=== PATIENT | female | born 1990 | race Caucasian/White ===

== ENCOUNTER 2024-02-12 00:20 | Emergency (ER) | payer OTHER ==
[~2024-02-12] VITALS: Ht 162.6 cm; Wt 65.8 kg
[2024-02-12] MEDS ORDERED: Mounjaro (00:27)
[2024-02-12] MEDS ORDERED: ONDANSETRON 4 MG/2 ML VIAL ONE (00:32)
[2024-02-12] MEDS ORDERED: HYDROMORPHONE 1 MG/1 ML DISP.SYRIN ONE (00:33)
[2024-02-12] MEDS ORDERED: KETOROLAC TROMETHAMINE 15 MG INJ ONE (00:33)
[2024-02-12] MEDS: IV NORMAL SALINE 1000 ML BAG IV ONE (00:56)
[2024-02-12] MEDS: KETOROLAC TROMETHAMINE 15 MG INJ IVP ONE (00:57)
[2024-02-12] MEDS: ONDANSETRON 4 MG/2 ML VIAL IV ONE (00:57)
[2024-02-12] MEDS: HYDROMORPHONE 1 MG/1 ML DISP.SYRIN IV ONE (00:57)
[2024-02-12 01:33] LABS: BASOPHILS # (AUTO) 0.2 K/UL (0.0-0.2); BASOPHILS % (AUTO) 2.2 % (0.0-2.0); EOSINOPHILS # (AUTO) 0.1 K/uL (0.0-0.7); EOSINOPHILS % (AUTO) 0.6 % (0.0-7.0); HEMATOCRIT 37.2 % (31.2-41.9); HEMOGLOBIN 11.9 g/dL (10.9-14.3); LYMPHOCYTES # (AUTO) 1.1 K/uL (0.8-4.8); LYMPHOCYTES % (AUTO) 10.3 % (20.5-51.5); MEAN CORPUSCULAR HEMOGLOBIN 26.4 uug (24.7-32.8); MEAN CORPUSCULAR HGB CONC 32 g/dL (32.3-35.6); MEAN CORPUSCULAR VOLUME 82.7 fL (75.5-95.3); MONOCYTES # (AUTO) 0.6 K/uL (0.1-1.30); MONOCYTES % (AUTO) 5.5 % (0.0-11.0); NEUTROPHILS # (AUTO) 8.4 K/uL (1.8-8.9); NEUTROPHILS % (AUTO) 81.4 % (38.5-71.5); PLATELET COUNT (AUTO) 205 K/uL (179-408); RED CELL DISTRIBUTION WIDTH 17.4 % (12.3-17.7); WHITE BLOOD COUNT (AUTO) 10.3 K/uL (3.8-11.8)
[2024-02-12 01:36] LABS: DIFFERENTIAL COMMENT 1
[2024-02-12 01:47] LABS: ALANINE AMINOTRANSFERASE 72 U/L (14-59); ALBUMIN 3.2 g/dL (3.4-5.0); ALKALINE PHOSPHATASE 66 U/L (50-136); ASPARTATE AMINOTRANSFERASE 110 U/L (15-37); BILIRUBIN,DIRECT 0.2 mg/dL (0.0-0.2); BILIRUBIN,TOTAL 0.4 mg/dL (0.2-1.0); CALCIUM 8.4 mg/dL (8.5-10.1); CARBON DIOXIDE 25 mmol/L (21-32); CHLORIDE 103 mmol/L (98-107); CREATININE 0.7 mg/dL (0.6-1.3); GLUCOSE 98 mg/dL (74-106); LIPASE 59 U/L (16-77); POTASSIUM 2.9 mmol/L (3.5-5.1); SODIUM SERUM 139 mmol/L (136-145); TOTAL PROTEIN, SERUM 6.3 g/dL (6.4-8.2); UREA NITROGEN, BLOOD 17 mg/dL (7-18)
[2024-02-12 01:51] LABS: PREGNANCY TEST SERUM QUAN < 1 miul/L (0-6)
[2024-02-12] MEDS ORDERED: POTASSIUM CHLORIDE 20 MEQ TAB.PRT.SR ONE (02:18)
[2024-02-12] MEDS: POTASSIUM CHLORIDE 20 MEQ TAB.PRT.SR PO ONE (02:26)
[2024-02-12] MEDS ORDERED: ONDA4TAB11 PO (03:05)
[2024-02-12] MEDS ORDERED: HYDR-3980 PO (03:05)
[2024-02-12] MEDS ORDERED: IBUP-1490 PO (03:05)
[2024-02-12 03:20] VITALS: BP 120/66; TEMP 98.5; O2SAT 98
== END 2024-02-12 03:21 | disposition home or self-care (01) ==
LOC: ER 00:23
DX: K80.70 Calculus of gallbladder and bile duct without cholecystitis without obstruction (principal); R11.2 Nausea with vomiting, unspecified; R10.2 Pelvic and perineal pain; Z90.49 Acquired absence of other specified parts of digestive tract; Z79.1 Long term (current) use of non-steroidal anti-inflammatories (NSAID); Z79.891 Long term (current) use of opiate analgesic; Z79.899 Other long term (current) drug therapy; Z88.0 Allergy status to penicillin
CPT/HCPCS: 99285; 96374; 76705; 96375; 71045; 96361; 80076; 80048; 83690; 85025; 84702; 36415; 93005; J1885; J2405; J1170; J7040; A4606; A4663